=== PATIENT | female | born 1945 | race African-American/Black ===

== ENCOUNTER 2019-06-29 18:05 | Emergency (ER) | payer OTHER, MEDICAID ==
[~2019-06-29] VITALS: Ht 162.6 cm; Wt 64.0 kg
[~2019-06-29 18:05] MED LIST: SEE MED REC
[2019-06-29] MEDS ORDERED: HALOPERIDOL LACTATE 5MG/ML VIAL IM ONE ×2 (18:13→18:15)
[2019-06-29] MEDS ORDERED: LORAZEPAM 2MG/ML CPJ IM ONE (18:30)
[2019-06-29] MEDS ORDERED: OLANZAPINE 10 MG/VIAL IM ONE (18:30)
[2019-06-29 19:36] LABS: BASOPHILS % 0.4 % (0.0-2.0); EOSINOPHILS % 0.9 % (0.0-5.0); HEMATOCRIT. 40.7 % (36.0-48.0); HEMOGLOBIN. 13.3 g/dL (12.0-16.0); LYMPHOCYTES % 32.6 % (20.0-50.0); MEAN CORPUSCULAR HEMOGLOBIN 31.2 pg (28.0-32.0); MEAN CORPUSCULAR VOLUME 95.1 fL (81.0-99.0); MEAN PLATELET VOLUME 7.5 fl (7.4-10.4); MONOCYTES % 10.8 % (2.0-8.0); NEUTROPHILS % 55.3 % (40.0-76.0); PLATELET 177 x1000/uL (130-400); RED BLOOD CELL COUNT 4.28 mill/uL (4.2-5.4); RED CELL DISTRIBUTION WIDTH 15.4 % (11.6-14.6)
[2019-06-29 19:41] LABS: CHLORIDE 111 mEq/L (98-107)
[2019-06-29 19:45] LABS: ETHANOL BLOOD < 10 mg/dL
[2019-06-29] MEDS ORDERED: SODIUM CHLORIDE 0.9% 500 ML IV ONE (19:57)
[2019-06-29] MEDS ORDERED: INSULIN REGULAR (HUMULIN R) 300UNITS/3ML IV ONE (20:15)
[2019-06-29 20:53] LABS: CLARITY URINE CLEAR (CLEAR); COLOR URINE YELLOW (YELLOW); KETONES URINE TRACE (NEGATIVE); LEUKOCYTE ESTERASE URINE NEGATIVE (NEGATIVE); NITRITE URINE NEGATIVE (NEGATIVE); OCCULT BLOOD URINE NEGATIVE (NEGATIVE); PH URINE 5.5 (4.5-8.0); PROTEIN URINE NEGATIVE (NEGATIVE); SPECIFIC GRAVITY URINE 1.018 (1.005-1.030)
[2019-06-29 21:25] VITALS: BP 121/64
[2019-06-30 16:05] LABS: *BARBITURATES SCREEN URINE NEGATIVE (NEGATIVE); *BENZODIAZEPINES SCREEN URINE NEGATIVE (NEGATIVE); METHADONE URINE SCREEN NEGATIVE (NEGATIVE)
[2019-06-30 16:09] LABS: *COCAINE SCREEN URINE NEGATIVE (NEGATIVE)
[2019-06-30 16:10] LABS: OPIATES URINE SCREEN NEGATIVE (NEGATIVE)
[2019-06-30 16:13] LABS: PHENCYCLIDINE URINE SCREEN NEGATIVE (NEGATIVE)
[2019-06-30 16:21] LABS: CANNABINOID URINE SCREEN NEGATIVE (NEGATIVE)
[2019-06-30 16:22] LABS: *AMPHETAMINES SCREEN URINE NEGATIVE (NEGATIVE)
== END 2019-06-29 21:50 | disposition short-term general hospital (02) ==
LOC: ER 18:05
DX: F20.9 Schizophrenia, unspecified (principal); F29 Unspecified psychosis not due to a substance or known physiological condition; E11.65 Type 2 diabetes mellitus with hyperglycemia; E86.0 Dehydration; I10 Essential (primary) hypertension; D64.9 Anemia, unspecified; J44.9 Chronic obstructive pulmonary disease, unspecified; F03.90 Unspecified dementia, unspecified severity, without behavioral disturbance, psychotic disturbance, mood disturbance, and anxiety; K21.9 Gastro-esophageal reflux disease without esophagitis; E78.00 Pure hypercholesterolemia, unspecified; Z88.1 Allergy status to other antibiotic agents; Z85.9 Personal history of malignant neoplasm, unspecified; Z91.19 Patient's noncompliance with other medical treatment and regimen
CPT/HCPCS: 36415; 80053; 80305; 80307; 80320; 80329; 81003; 82962; 85025; 96361; 96372; 96374; 99285; J1630; J1815; J2060; J3490; J7040; G0480

== ENCOUNTER 2023-08-14 11:32 | Emergency (ER) | payer OTHER, MEDICAID ==
[~2023-08-14] VITALS: Ht 162.6 cm; Wt 45.0 kg
[2023-08-14 11:51] VITALS: O2SAT 96
[2023-08-14] MEDS ORDERED: ELIQUIS (11:51)
[2023-08-14] MEDS ORDERED: ABILIFY (11:51)
[2023-08-14] MEDS ORDERED: ATOR10TA69 PO (11:51)
[2023-08-14] MEDS ORDERED: AMLODIPINE (11:51)
[2023-08-14] MEDS ORDERED: GABAPENTIN (11:51)
[2023-08-14] MEDS ORDERED: CARB-32 PO (11:51)
[2023-08-14] MEDS ORDERED: ATEN-42 PO (11:51)
[2023-08-14] MEDS ORDERED: ANAS1TAB49 PO (11:51)
[2023-08-14] MEDS ORDERED: BENZ0.5T3 PO (11:51)
[2023-08-14 12:28] LABS: BASOPHILS % 0.4 % (0.0-2.0); EOSINOPHILS % 1.5 % (0.0-5.0); HEMATOCRIT. 35.9 % (36.0-48.0); HEMOGLOBIN. 12.3 g/dL (12.0-16.0); LYMPHOCYTES % 39.8 % (20.0-50.0); MEAN CORPUSCULAR HEMOGLOBIN 32.5 pg (28.0-32.0); MEAN CORPUSCULAR HGB CONC 34.3 g/dL (31.0-37.0); MEAN CORPUSCULAR VOLUME 94.8 fL (81.0-99.0); MEAN PLATELET VOLUME 7.2 fl (7.4-10.4); MONOCYTES % 7.2 % (2.0-8.0); NEUTROPHILS % 51.1 % (40.0-76.0); PLATELET 179 x1000/uL (130-400); RED BLOOD CELL COUNT 3.79 mill/uL (4.2-5.4); RED CELL DISTRIBUTION WIDTH 14.2 % (11.6-14.6); WHITE BLOOD COUNT 5.7 x1000/uL (4.5-11.0)
[2023-08-14 12:39] LABS: INR 1.1; PROTHROMBIN TIME 11.5 sec (9.6-11.0)
[2023-08-14 12:54] LABS: CHLORIDE 111 mEq/L (98-107); INDEX HEMOLYSI 1 (1-3); INDEX ICTERIC 1 (1-4); INDEX LIPEMIC 1 (1-3); POTASSIUM 4.5 mEq/L (3.5-5.1); SODIUM 137 mEq/L (136-145)
[2023-08-14 13:05] LABS: ALANINE AMINOTRANSFERASE 8 IU/L (13-61); ALBUMIN 3.3 g/dL (3.4-5.0); ASPARTATE AMINOTRANSFERASE 13 IU/L (15-37); BILIRUBIN TOTAL 0.8 mg/dL (0.1-1.0); CALCIUM 9.1 mg/dL (8.5-10.1); CARBON DIOXIDE 27 mEq/L (21-32); CREATININE 0.8 mg/dL (0.6-1.3); GLUCOSE 161 mg/dL (70-105); PROTEIN TOTAL 7.4 g/dL (6.0-8.3); TROPONIN I HIGH SENSITIVITY 14 ng/L (<54); UREA NITROGEN BLOOD 17 mg/dL (7-21)
[2023-08-14] MEDS ORDERED: ONDANSETRON HCL 4MG/2ML INJ IV STA (13:23)
[2023-08-14] MEDS ORDERED: SODIUM CHLORIDE 0.9% 1,000 ML IV ONE (13:30)
[2023-08-14] MEDS ORDERED: ONDANSETRON HCL 4MG/2ML INJ IV ONE (13:45)
[2023-08-14 16:06] LABS: CLARITY URINE CLEAR (CLEAR); COLOR URINE YELLOW (YELLOW); GLUCOSE URINE NEGATIVE (NEGATIVE); KETONES URINE NEGATIVE (NEGATIVE); LEUKOCYTE ESTERASE URINE NEGATIVE (NEGATIVE); NITRITE URINE NEGATIVE (NEGATIVE); OCCULT BLOOD URINE NEGATIVE (NEGATIVE); PROTEIN URINE 1+ (NEGATIVE); SPECIFIC GRAVITY URINE 1.011 (1.005-1.030)
[2023-08-14 16:08] LABS: BACTERIA URINE NONE SEEN; SQUAMOUS EPITHELIAL CELL URINE NONE SEEN /lpf (RARE/1+); WBC URINE 0-2 /hpf (0-2); YEAST URINE NONE SEEN
[2023-08-14 16:25] VITALS: BP 142/64; PULSE 58; RESP 18; TEMP 98.4
== END 2023-08-14 16:39 | disposition short-term general hospital (02) ==
LOC: ER 11:32
DX: R11.2 Nausea with vomiting, unspecified (principal); E86.0 Dehydration; J44.9 Chronic obstructive pulmonary disease, unspecified; D64.9 Anemia, unspecified; F03.90 Unspecified dementia, unspecified severity, without behavioral disturbance, psychotic disturbance, mood disturbance, and anxiety; E11.9 Type 2 diabetes mellitus without complications; K21.9 Gastro-esophageal reflux disease without esophagitis; E78.00 Pure hypercholesterolemia, unspecified; I10 Essential (primary) hypertension; F20.9 Schizophrenia, unspecified; Z79.899 Other long term (current) drug therapy; Z85.9 Personal history of malignant neoplasm, unspecified; Z20.822 Contact with and (suspected) exposure to COVID-19
CPT/HCPCS: 99285; 96374; 71045; 96361; 87426; 80053; 81003; 83605; 85025; 85610; 87040; 87086; 84484; 36415; 84145; 93005; J2405; J7030; C9803